=== PATIENT | female | born 1980 | race Caucasian/White ===

== ENCOUNTER 2016-07-12 09:43 | Emergency (ER) | payer MEDICAID, OTHER ==
[2016-07-12] MEDS ORDERED: KETOROLAC 60 MG/2 ML VIAL IM ONE (10:18)
[2016-07-12] MEDS ORDERED: MORPHINE 4 MG/ML SYR ONE (10:18)
== END 2016-07-12 11:02 | disposition home or self-care (01) ==
LOC: FASTR 09:43
DX: S39.012A Strain of muscle, fascia and tendon of lower back, initial encounter (principal); M51.16 Intervertebral disc disorders with radiculopathy, lumbar region; M54.32 Sciatica, left side; Z79.899 Other long term (current) drug therapy
CPT/HCPCS: 72100; 96372